=== PATIENT | male | born 1965 | race Caucasian/White ===

== ENCOUNTER 2019-07-04 22:11 | Emergency (ER) | payer MEDICARE, OTHER, SELFPAY ==
[2019-07-04 22:36] VITALS: BP 195/109; PULSE 89; RESP 16; TEMP 36.8; O2SAT 96; BMI 29.9
[2019-07-04] MEDS: ketorolac 60 mg/2 mL INJ IM (23:54)
[2019-07-04] MEDS: diazePAM 5 mg Tablet PO (23:54)
--- NOTE | 2019-07-05 00:18 | PC.NURSE ---
Patient resting in bed with spouse at bedside, denies any pain relief following medications. Denies any needs at this time
[2019-07-05 00:49] VITALS: RESP 16
[2019-07-05] MEDS: morphine 4 mg/mL SDV 1 mL IM (00:49)
[2019-07-05 01:04] VITALS: BP 166/112; PULSE 96; RESP 16; O2SAT 95
--- NOTE | 2019-07-05 01:17 | ED_ITS ---
HPI - Neck Pain/Injury General: Chief Complaint: Neck Pain/Injury Stated Complaint: neck pain Time Seen by Provider: 07/04/19 23:30 Source: patient and family Mode of arrival: ambulatory Limitations: no limitations History of Present Illness: HPI Narrative: Patient is a 53-year-old male who presents to ED today with complaints of a burning sensation starting on the right side of his neck and radiating down over his right shoulder but does not extend down into his right upper extremity/arm. Patient reports he has had intermittent tingling to the same area for several months now that was tolerable but states over the past few days symptoms have now progressed to burning and have kept him up several nights in a row due to the discomfort. He denies weakness in his upper extremities. No headache. Has not noticed any redness/swelling/color/temperature changes in the extremity. MD complaint: neck pain and other (R shoulder burning) Radiation: right shoulder Severity: moderate Quality: burning Duration: constant Relieving factors: none Exacerbating factors: none Associated symptoms: Reports no associated symptoms; Denies headache(s) Treatments prior to arrival: acetaminophen, ibuprofen and prescription analgesic (tramadol) Review of Systems Const: Denies: fever or chills Eyes: Denies: change in vision or blurry vision Card: Denies: chest pain, palpitations, irregular heart rhythm, edema, lightheadedness, syncope or pre-syncope Resp: Denies: shortness of breath, pain on inspiration or chest congestion Musc: Reports: neck pain and extremity pain; Denies: back pain, extremity swelling, joint swelling, redness, joint warmth, joint stiffness, limited range of motion, muscle cramps, muscle weakness or decrease in muscle mass Skin/Breast: Denies: rash Neuro: Reports: changes in sensation; Denies: headache, numbness in extremities or weakness in extremities PFSH ED PFSH: Statuses (acute, chronic, etc) shown below reflect problem list status as previously entered and may not be historically accurate Social History Smoking and tobacco status: former smoker Physical Exam Const: COMMON NORMALS: no apparent distress, average body habitus, oriented x3, no limitations, healthy appearing, alert and well nourished Neck/C-Spine: COMMON NORMALS: full ROM, no lymphadenopathy, supple and no meningeal signs OTHER: pt with pain to lower cervical spine with head rotation to the R; negative Spurling's Extremity: COMMON NORMALS: normal to inspection, full ROM and no joint enlargement OTHER: pt maintains full ROM of shoulder joint; exam not concerning for shoulder impingement or other acute pathology Neuro: COMMON NORMALS: oriented x3, moves all extremities, no focal motor deficits and no sensory deficits noted SENSORIUM/ORIENTATION: Yes alert MENINGEAL SIGNS: Yes no meningeal signs Skin: COMMON NORMALS: no rashes or lesions noted GENERAL SKIN EXAM: no rashes or lesions noted Course Vital Signs: Vital signs: Vital Signs Temperature 98.3 F 07/04/19 22:36 Pulse Rate 96 07/05/19 01:04 Respiratory Rate 16 07/05/19 01:04 Blood Pressure 166/112 07/05/19 01:04 Pulse Oximetry 95 07/05/19 01:04 MDM - Neck Pain/Injury MDM Narrative: Medical decision making narrative: Symptoms are consistent with a cervical radiculopathy. There is no need for emergent advanced imaging today as it is not going to overall change my management. states they are scheduled to have an appointment at [facility] in [place] for conservative therapy such as physical therapy and chiropractor care. I agree this is an appropriate option at this time. I did suggest if he does not seem to be improving with conservative management, he might seek neurosurgery evaluation. Discharge Plan Discharge Patient Disposition: Home, Self-Care Clinical Impression: Cervical radicular pain Condition: Stable Prescriptions: New Zanaflex 2 mg capsule 2 mg PO Q8H PRN (Reason: muscle spasticity) Qty: 14 RF: 0 hydrocodone-acetaminophen 5-325 mg tablet 1 tab PO Q6H PRN (Reason: pain) Qty: 14 RF: 0 Discharge Orders: Discharge Order (Routine); Ordered 07/05/19 Ordered By: Antonia Banda Referrals: [facility] MD [Primary Care Provider] - Discharge Diet: Usual diet Discharge Activity: Increase activity as tolerated Activity Restrictions/Additional Instructions: As discussed continue your evaluation with primary care as scheduled on Sunday and then keep appointment with [facility] in [place]. If conservative measures fail, then I would recommend obtaining neurosurgery consultation. Discharge Date/Time: 07/05/19 01:05 Coding Level of Care Code ED Leather Polisher for Eliseo Fwbaldomero Exam Problem Focused
== END 2019-07-05 01:05 | disposition home or self-care (01) ==
PROVIDERS: Emergency Provider Physician Assistant; Family Provider Family Medicine; PCP Family Medicine
DX: M54.12 Radiculopathy, cervical region (principal); Z87.891 Personal history of nicotine dependence
CPT/HCPCS: 96372; 99281; 99283; J1885; J2270

== ENCOUNTER 2019-07-08 09:44 | Outpatient (CLI) | payer MEDICARE, OTHER, SELFPAY | END 2019-07-08 09:45 | disposition home or self-care (01) | LOC: RADSHAW 10:59 | PROVIDERS: Family Provider Family Medicine; PCP Family Medicine; Visit Provider Nurse Practitioner | DX: M54.5 Low back pain (principal); M54.12 Radiculopathy, cervical region; Z79.891 Long term (current) use of opiate analgesic | CPT/HCPCS: 99214 ==

== ENCOUNTER 2019-07-16 08:57 | Outpatient (CLI) | payer MEDICARE, OTHER, SELFPAY ==
--- NOTE | 2019-07-16 09:30 | MR_ITS ---
WS: [id number] MRI CERVICAL SPINE NONCONTRAST TECHNIQUE: Sagittal T1, T2 and STIR imaging. Axial T2, gradient, and fiesta imaging. CLINICAL INFORMATION: rt. neck and clavicular region pain COMPARISON: MRI February 21, 2018 FINDINGS: Straightening of the normal cervical lordosis. Mild disc bulging C3-C4 and C4-C5 with slight contact of the cervical cord. Cord signal is normal. C2-C3: Normal C3-C4: Mild disc bulging with osteophytic ridging. Mild central canal stenosis. Moderate to severe le ft and moderate right bony foraminal narrowing. Mild facet arthropathy. C4-C5: Disc osteophyte complex with endplate ridging. Mild to moderate central canal stenosis and sli ght contact of the cervical cord. Severe left and mild to moderate right bony foraminal narrowing. Mi ld facet arthropathy. C5-C6: No significant disc bulging. Mild bilateral bony foraminal narrowing. Spinal canal is patent. Mild facet arthropathy. C6-C7: Normal. C7-T1: Mild facet arthropathy. No significant disc bulging. Spinal canal and foramen are patent. Visualized brain stem structures: Normal. Prevertebral soft tissues: Normal. MR/MR cervical spin wo con* [id number] IMPRESSION: 1. Straightening of the normal cervical lordosis. 2. Mild to moderate central canal stenosis C3-C4 and C4-C5 due to disc osteoph yte complexes with small central disc osteophyte protrusions. Slight contact of the cervical cord. Spinal canal stenosis is unchanged since February 21, 2018 . 3. Multilevel bony foraminal narrowing worse at bilateral C3-C4 left greater t vickers right, left C4-C5, and right C5-6
== END 2019-07-16 08:58 | disposition home or self-care (01) ==
PROVIDERS: Family Provider Family Medicine; PCP Family Medicine; Visit Provider Nurse Practitioner
DX: M48.02 Spinal stenosis, cervical region (principal); M25.78 Osteophyte, vertebrae; M47.812 Spondylosis without myelopathy or radiculopathy, cervical region
CPT/HCPCS: 72040; 72141

== ENCOUNTER 2019-07-16 10:32 | Outpatient (CLI) | payer MEDICARE, OTHER, SELFPAY ==
--- NOTE | 2019-07-16 10:39 | XR_ITS ---
WS: [id number] XR cervical spine fl/ex [id number] REASON FOR EXAM: pain rt neck and clavicle region FINDINGS: Lateral projection of the neck shows anterior spurring C3, C4, C5. There is mild posterior spurring noted C4-C5. And mildly C5-6. Flexion-extension views show normal flexion and extension. XR/XR cervical spine fl/ex [id number] IMPRESSION: Normal flexion and extension. Degenerated spurring off the anterior bodies of C3-C4-C5 There is mild cervical spondylosis C5 and C6, C4-C5.
== END 2019-07-16 10:33 | disposition home or self-care (01) ==
LOC: RAD 10:36
PROVIDERS: Family Provider Family Medicine; PCP Family Medicine; Visit Provider Nurse Practitioner
DX: M47.812 Spondylosis without myelopathy or radiculopathy, cervical region (principal)
CPT/HCPCS: 72040

== ENCOUNTER → 2019-08-05 12:49 | Outpatient (BNVA) | payer MEDICARE, OTHER, SELFPAY | PROVIDERS: Family Provider Family Medicine; PCP Nurse Practitioner Family; Visit Provider Nurse Practitioner | DX: M54.12 Radiculopathy, cervical region (principal); M48.061 Spinal stenosis, lumbar region without neurogenic claudication; Z79.891 Long term (current) use of opiate analgesic | CPT/HCPCS: 99213; 99214 ==

== ENCOUNTER → 2019-10-03 10:33 | Outpatient (BNVA) | payer MEDICARE, OTHER, SELFPAY | PROVIDERS: Family Provider Family Medicine; PCP Nurse Practitioner Family; Visit Provider Nurse Practitioner | DX: M48.061 Spinal stenosis, lumbar region without neurogenic claudication (principal); M54.9 Dorsalgia, unspecified; M54.12 Radiculopathy, cervical region; M47.12 Other spondylosis with myelopathy, cervical region; Z79.891 Long term (current) use of opiate analgesic | CPT/HCPCS: 99213; 99214 ==

== ENCOUNTER → 2019-12-12 09:52 | Outpatient (BNVA) | payer MEDICARE, OTHER, SELFPAY | PROVIDERS: Family Provider Family Medicine; PCP Nurse Practitioner Family; Visit Provider Anesthesiology | DX: M54.12 Radiculopathy, cervical region (principal); M47.12 Other spondylosis with myelopathy, cervical region; M54.42 Lumbago with sciatica, left side; M54.41 Lumbago with sciatica, right side; M48.061 Spinal stenosis, lumbar region without neurogenic claudication; M51.36 Other intervertebral disc degeneration, lumbar region; M47.816 Spondylosis without myelopathy or radiculopathy, lumbar region; M54.9 Dorsalgia, unspecified; M96.1 Postlaminectomy syndrome, not elsewhere classified; Z79.891 Long term (current) use of opiate analgesic | CPT/HCPCS: 99214 ==

== ENCOUNTER → 2020-02-26 09:04 | Outpatient (BNVA) | payer MEDICARE, OTHER, SELFPAY | PROVIDERS: Family Provider Family Medicine; PCP Nurse Practitioner Family; Visit Provider Anesthesiology | DX: M48.061 Spinal stenosis, lumbar region without neurogenic claudication (principal); M47.816 Spondylosis without myelopathy or radiculopathy, lumbar region; M51.36 Other intervertebral disc degeneration, lumbar region; M54.12 Radiculopathy, cervical region; M47.12 Other spondylosis with myelopathy, cervical region; M54.9 Dorsalgia, unspecified; M96.1 Postlaminectomy syndrome, not elsewhere classified; M99.31 Osseous stenosis of neural canal of cervical region; Z79.891 Long term (current) use of opiate analgesic | CPT/HCPCS: 99213; 99214 ==

== ENCOUNTER → 2020-05-07 08:56 | Outpatient (BNVA) | payer MEDICARE, OTHER, SELFPAY | PROVIDERS: Family Provider Family Medicine; PCP Nurse Practitioner Family; Visit Provider Nurse Practitioner | DX: M48.061 Spinal stenosis, lumbar region without neurogenic claudication (principal); M54.12 Radiculopathy, cervical region; M47.12 Other spondylosis with myelopathy, cervical region; Z79.891 Long term (current) use of opiate analgesic; M96.1 Postlaminectomy syndrome, not elsewhere classified; M47.816 Spondylosis without myelopathy or radiculopathy, lumbar region | CPT/HCPCS: 99213 ==

== ENCOUNTER 2020-06-07 12:40 | Emergency (ER) | payer MEDICARE, OTHER, SELFPAY ==
[2020-06-07 12:41] VITALS: BP 176/91; PULSE 86; RESP 13; TEMP 36.6; O2SAT 96; BMI 29.0
[2020-06-07 12:50] VITALS: BP 176/91; PULSE 91; RESP 13; O2SAT 96
--- NOTE | 2020-06-07 12:54 | PC.NURSE ---
Side rails padded for pt safety. Pt denies any drug or alcohol abuse.
[2020-06-07 13:00] VITALS: BP 169/90; PULSE 86; RESP 15; O2SAT 99
--- NOTE | 2020-06-07 13:03 | XRR_ITS ---
PROCEDURE INFORMATION: Exam: XR Chest, 1 View Exam date and time: 06/07/2020 1:15 PM Age: 54 years old Clinical indication: Cough and dyspnea; Patient HX: Seizure; Additional info: Dyspnea/cough TECHNIQUE: Imaging protocol: XR of the chest Views: 1 view. COMPARISON: No relevant prior studies available. FINDINGS: Lungs: Unremarkable. No consolidation. Pleural space: Unremarkable. No pleural effusion. No pneumothorax. Heart/Mediastinum: Unremarkable. No cardiomegaly. Bones/joints: No acute findings. XR/XR chest 1V portable [id number] IMPRESSION: No acute findings.
--- NOTE | 2020-06-07 13:04 | CT_ITS ---
WS: [id number] CT HEAD TECHNIQUE: Noncontrast CT of the head obtained from the skullbase to the vertex. CLINICAL INFORMATION: seizure COMPARISON: None. DLP: 871.[address] scans at [facility] use at least one of these dose optimization techniques: automat ed exposure control; mA and/or kV adjustment per patient size (includes targeted exams where dose is matched to clinical indication); or iterative reconstruction. FINDINGS: Heterogeneous ovoid lesion at the parietal verma-white junction measuring 1.5 x 2.2 cm with mild assoc iated edema. Findings are nonspecific and underlying mass lesion not excluded.Recommend further evalu ation with MRI without and with gadolinium enhancement. Otherwise normal verma-white differentiation. Mild small vessel changes. Mild parenchymal volume loss. Paranasal sinuses and mastoid air cells well aerated. Impression. CT/CT head wo con* [id number] IMPRESSION: 1. Ovoid slightly heterogeneous low-attenuation lesion in the right parietal l obe at the verma-white junction with mild edema. This is nonspecific and Recomme nd further evaluation with MRI without and with gadolinium enhancement. 2. No significant mass effect or midline shift. No hydrocephalus. 3. No acute intracranial hemorrhage. 4. Mild small vessel changes with mild parenchymal volume loss. Notified Ezequiel Adams DO at 06/07/2020 1:56 PM.
--- NOTE | 2020-06-07 13:08 | W.ED.SEIZURE ---
HPI - Seizure General: Chief Complaint: Seizure Stated Complaint: CONFUSION, SEIZURE LIKE ACTIVITY, HEADACHE Time Seen by Provider: 06/07/20 12:45 History of Present Illness: HPI Narrative: 54-year-old male presents to the emergency room with complaint of a seizure. He was acting unusual today had some vision changes and had a tonic-clonic seizure. He said 2 week ago (his later corrected this and it was actually 2 months ago) he was at [facility] had some migraines had a CT of the head was negative was sent to the eye doctor who evaluated him there for his vision and then they sent him back to the emergency room where he had an MRI that was reportedly normal he still having some blurry vision now he is significantly confused his is at the bedside he cannot remember any of the events that happened prior to coming here. He denies chest pain or abdominal pain. He does appear postictal on arrival here. The episode a couple months ago began with a headache and then he had some eye twitching that lasted for some time before he was seen. MD complaint: possible seizure Onset (ago): hour(s) Description of Episode: loss of consciousness and tonic-clonic movement Witnessed: Yes - by Bystander Trauma: No Seizure History: Yes (Possibly) Place: Home Associated symptoms: Deny chest pain, chills, confusion, cough, diaphoresis, fever(s), anorexia, malaise, rash or short of breath Treatments prior to arrival: none Review of Systems Const: Denies: fever(s), chills, malaise or diaphoresis ENMT: Denies: throat pain, ear or mastoid pain, nasal discharge or nasal congestion Card: Denies: chest pain Resp: Denies: dyspnea, productive cough or non-productive cough GI: Denies: abdominal pain, nausea, vomiting, hematemesis, coffee ground emesis, diarrhea, constipation, bloating, hematochezia or melena : Denies: flank pain, dysuria, urinary frequency or urinary urgency Skin/Breast: Denies: rash or pruritus Neuro: Denies: confusion PFSH ED PFSH: Medical History (Updated 06/07/20 @ 16:24 by Ezequiel Adams DO) DDD (degenerative disc disease), lumbar Depression Diabetes Failed back syndrome, lumbar Foraminal stenosis of lumbar region Long-term current use of opiate analgesic Pain management contract signed Spondylosis without myelopathy or radiculopathy, lumbar region Surgical History History of lumbar surgery 2012 Dr. Marinelli - Fusion Hx of tonsillectomy (~09/30/14) DR MYERS [place] Family History Mother Diabetes Lupus (systemic lupus erythematosus) Father Diabetes Denies family history of Anesthesia complication Bleeding disorder Social History Smoking and tobacco status: former smoker Alcohol intake: current Alcohol intake frequency: holidays/special occasions only Lives independently: Yes History of recent travel: No Physical Exam Const: COMMON NORMALS: no acute distress GENERAL APPEARANCE: cooperative and comfortable ORIENTATION/CONSCIOUSNESS: Yes awake, Yes oriented to person, Yes oriented to place and Yes oriented to time HENMT: COMMON NORMALS: normocephalic, atraumatic and hearing grossly normal bilaterally HEAD & SCALP: normocephalic and atraumatic Eye: COMMON NORMALS: Equal, round and reactive pupils present, EOMs intact bilaterally, conjunctivae normal and no scleral icterus CONJUNCTIVA: Yes conjunctivae normal PUPIL: Yes Equal, round and reactive pupils present Neck/C-Spine: COMMON NORMALS: full ROM, no lymphadenopathy, supple and no JVD Resp: COMMON NORMALS: normal respiratory effort, No retractions, No use of accessory muscles and clear to auscultation bilaterally AUSCULTATION: clear to auscultation bilaterally Cardio: COMMON NORMALS: no JVD, regular rate, regular rhythm and No murmurs present (Cardio) RATE: regular rate RHYTHM: regular rhythm GI: COMMON NORMALS: Soft to palpation and No hepatosplenomegaly present AUSCULTATION: Yes normoactive bowel sounds PALPATION: Yes Soft to palpation, No Tenderness to palpation present (GI), No Guarding due to palpation present (GI) and Yes No hepatosplenomegaly present Extremity: COMMON NORMALS: normal to inspection, capillary refill normal, no clubbing, cyanosis or edema, no calf tenderness and no pedal edema Neuro: SENSORIUM/ORIENTATION: Yes oriented to person, Yes oriented to place and Yes oriented to time Skin: COMMON NORMALS: no rashes or lesions noted GENERAL SKIN EXAM: no rashes or lesions noted Course Vital Signs: Vital signs: Vital Signs Temperature 97.8 F 06/07/20 12:41 Pulse Rate 86 06/07/20 12:41 Respiratory Rate 13 06/07/20 12:41 Blood Pressure 176/91 06/07/20 12:41 Pulse Oximetry 96 06/07/20 12:41 MDM - Seizure MDM Narrative: Medical decision making narrative: Written reports from the imaging done at [facility] 2 months ago was received and compared to today's. There is a new lesion of the right parietal l area posteriorly Dr. Tapia recommended a MRI. MRI it appears to be an old bleed there is some hemosiderin in. He does recommend repeat imaging at some point in the future like in [address] Dang as well. I think he may have had a partial complex seizure 2 months ago and now is developing more significant seizures today it sounded like he had a tonic-clonic seizure that is much more generalized. We will go ahead and start him on Keppra we loaded him here we will discharge him on 1050 twice daily he will likely need to reconsider whether or not he continues on the Eliquis. In talking to him this Eliquis was started after a DVT that began after a long flight. He has been on anticoagulation since then. Recommend that he follow-up with his primary care doctor soon as possible to review whether or not he should continue on that. We will also set him up to see Dr. Dang for follow-up whether or not he should continue on the Keppra and further imaging on this. Lab Data: Labs: Lab Results 06/07/20 06/07/20 06/07/20 Range/Units 12:15 12:15 13:25 WBC 9.0 (4.0-10.0) 10^3/ uL RBC 6.08 H (4.1-5.3) 10^6/u L Hgb 17.7 H (11.7-16.6) g/dL Hct 55.3 H (42.0-52.0) % MCV 91.0 (80-94) fL MCH 29.1 (28.0-34.0) pg MCHC 32.0 (30.0-36.0) g/dL RDW 12.3 (12.1-15.1) % Plt Count 227 (130-400) 10^3/c mm MPV 10.7 H (7.4-10.4) fL Neut % (Auto) 47.8 % Lymph % (Auto) 39.4 % [place] % (Auto) 8.1 % Eos % (Auto) 2.2 % Baso % (Auto) 0.7 % Neut # (Auto) 4.32 (1.8-7.7) 10^3/u L Lymph # (Auto) 3.6 (0.8-4.8) 10^3/u L [place] # (Auto) 0.7 (0.2-0.9) 10^3/u L Eos # (Auto) 0.2 (0.0-0.8) 10^3/u L Baso # (Auto) 0.1 (0.0-0.1) 10^3/u L Nucleated RBC % (a uto) 0 % Nucleated RBCs # 0.0 /100WBC Sodium 132 L (136-145) mmol/L Potassium 4.8 (3.5-5.1) mmol/L Chloride 91 L (98-107) mmol/L Carbon Dioxide 18 L (22-29) mmol/L Anion Gap 27.8 H (5-19) BUN 15 (6-20) mg/dL Creatinine 1.1 (0.7-1.2) mg/dL GFR Calculation 69.2 L (90-130) mL/min Glucose 332 H (65-115) mg/dL Calculated Osmolal ity 288 (285-295) mOsm/k g Calcium 9.8 (8.5-10.5) mg/dL Total Bilirubin 0.3 (0.15-1.2) mg/dL AST 35 (0-40) U/L ALT 37 (0-41) U/L Alkaline Phosphata se 69 (40-130) IU/L Creatine Kinase 109 (39-308) U/L Total Protein 7.6 (6.6-8.7) g/dL Albumin 4.7 (3.5-5.2) g/dL Globulin 2.9 (1.3-4.6) g/dL Urine Color Yellow (Yellow) Urine Appearance Clear (CLEAR) Urine pH 5 (5-7) Ur Specific Gravit y 1.020 (1.005-1.030) Urine Protein 1+ H (Negative) Urine Glucose (UA) 4+ H (Normal) Urine Ketones 1+ H (Negative) Urine Blood Neg (Negative) Urine Nitrate Negative (Negative) Urine Bilirubin Neg (Negative) Urine Urobilinogen Norm (Negative) mg/dL Ur Leukocyte Lisa ase Negative (Negative) Urine RBC 0-4 H (0-2) /hpf Urine WBC 0-4 H (0-5) /hpf Ur Squamous Epith Cells 0-4 H (0-5) /hpf Amorphous Sediment Not Reportable Urine Bacteria Trace (NONE) /hpf Discharge Plan Discharge Patient Disposition: Home Clinical Impression: Long-term current use of opiate analgesic, Generalized seizure, Diabetes, Hx of deep venous thrombosis Condition: Stable Prescriptions: New Keppra 750 mg tablet 750 mg PO BID Qty: 60 RF: 0 No Action zolpidem [Ambien] 10 mg tablet 10 mg PO BEDTIME@0900 RF: 0 metformin 500 mg tablet 1,000 mg PO BID@0900,2100 RF: 0 famotidine [Pepcid] 20 mg tablet 20 mg PO DAILY PRN (Reason: stomach issues) RF: 0 bupropion HCl 300 mg tablet extended release 24 hr 300 mg PO DAILY@0900 RF: 0 lisinopril 10 mg tablet 10 mg PO BID@0900,2100 RF: 0 Eliquis 5 mg tablet 5 mg PO DAILY@2100 RF: 0 Levemir FlexTouch U-100 Insuln 100 unit/mL (3 mL) insulin pen 12 unit SUBCUT DAILY@1200 PRN (Reason: blood sugar) RF: 0 atorvastatin 80 mg tablet 80 mg PO DAILY@0900 RF: 0 Vitamin E See Rx Instructions .ROUTE .COMPLEX RF: 0 cyclobenzaprine 10 mg tablet 10 mg PO TID PRN (Reason: muscle spasm) Qty: 90 RF: 1 hydrocodone-acetaminophen 5-325 mg tablet 1 tab PO BID PRN (Reason: pain) 30 Days Qty: 60 RF: 0 Discharge Orders: Discharge ED (Routine); Ordered 06/07/20 Ordered By: Ezequiel Adams Referrals: Dipika Karimi, PUBLIC HEALTH ENGINEER [Primary Care Provider] - Discharge Diet: Usual diet Discharge Activity: Limit activity as instructed Activity Restrictions/Additional Instructions: Avoid driving a motor vehicle until cleared by neurology. Case management will set you up to see neurology. You will need follow-up imaging for the findings today in the ER. Follow-up with your primary care doctor within the next week to review whether or not you should continue the Eliquis. Coding Level of Care Code ED Optoelectronics Engineer for Eliseo Fwd Exam Comprehensive
[2020-06-07 13:21] LABS: Basophils # 0.1 10^3/uL (0.0-0.1); Basophils % 0.7 %; Eosinophils # 0.2 10^3/uL (0.0-0.8); Eosinophils % 2.2 %; Hematocrit 55.3 % (42.0-52.0); Hemoglobin 17.7 g/dL (11.7-16.6); Lymphocytes # 3.6 10^3/uL (0.8-4.8); Lymphocytes % 39.4 %; Mean Corpuscular Hemoglobin 29.1 pg (28.0-34.0); Mean Platelet Volume 10.7 fL (7.4-10.4); Monocytes # 0.7 10^3/uL (0.2-0.9); Monocytes % 8.1 %; Neutrophils # 4.32 10^3/uL (1.8-7.7); Neutrophils % 47.8 %; Nucleated Red Blood Cells % 0 %; Platelet Count 227 10^3/cmm (130-400); Red Blood Count 6.08 10^6/uL (4.1-5.3); Red Cell Distribution Width 12.3 % (12.1-15.1)
[2020-06-07 13:30] VITALS: BP 156/95; PULSE 85; RESP 17; O2SAT 97
[2020-06-07 13:31] LABS: Alanine Aminotransferase 37 U/L (0-41); Albumin Level 4.7 g/dL (3.5-5.2); Alkaline Phosphatase 69 IU/L (40-130); Blood Urea Nitrogen 15 mg/dL (6-20); Calcium 9.8 mg/dL (8.5-10.5); Carbon Dioxide 18 mmol/L (22-29); Chloride 91 mmol/L (98-107); Creatine Phosphokinase 109 U/L (39-308); Globulin 2.9 g/dL (1.3-4.6); Glomerular Filtration Rate 69.2 mL/min (90-130); Glucose 332 mg/dL (65-115); Osmolality Calculated 288 mOsm/kg (285-295); Sodium 132 mmol/L (136-145); Total Bilirubin 0.3 mg/dL (0.15-1.2); Total Protein 7.6 g/dL (6.6-8.7)
[2020-06-07 13:34] LABS: Anion Gap 27.8 (5-19); Aspartate Amino Transferase 35 U/L (0-40); Potassium 4.8 mmol/L (3.5-5.1)
[2020-06-07 13:40] LABS: Urine Appearance Clear (CLEAR); Urine Color Yellow (Yellow); pH Urine 5 (5-7)
[2020-06-07 13:41] LABS: Add Urine Microscopic? YES; Bilirubin Urine Neg (Negative); Blood Urine Neg (Negative); Glucose Urine UA 4+ (Normal); Ketones Urine 1+ (Negative); Leukocyte Esterase Urine Negative (Negative); Nitrate Urine Negative (Negative); Protein Urine 1+ (Negative); Urobilinogen Urine Norm (Negative)
[2020-06-07 13:59] LABS: RBC Urine 0-4 /hpf (0-2); Squamous Epithelial Cell Urine 0-4 /hpf (0-5); WBC Urine 0-4 /hpf (0-5)
[2020-06-07 14:00] LABS: Add Urine Culture? No; Bacteria Urine TRACE /hpf
--- NOTE | 2020-06-07 14:06 | MR_ITS ---
WS: [id number] MRI HEAD WITH CONTRAST TECHNIQUE: Sagittal T1, T2 axial, T2 axial FLAIR, axial susceptibility weighted imaging, axial diffus ion weighted images, and coronal T2 images were obtained. Pre and post-T1 axial and post T1 coronal i mages. ADC and FSPGR images. CLINICAL INFORMATION: new mass - r parietal lobe COMPARISON: Outside CT and MRI reports 03/12/2020 and 03/13/2020 FINDINGS: In the area of concern, right parietal lobe, there is a T2 hyperintense serpiginous enhancing lesion with associated central punctate hemosiderin on susceptibly weighted images. This lesion measures deidra roximately 1.8 x 1.8 cm. This is subcortical and centered at the verma-white junction. Small amount of associated T1 hyperintensity seen on the sagittal T1 imaging consistent with a small amount of subac david blood products or laminar necrosis. No restricted diffusion to suggest acute ischemia. Ventricular system and basal cisterns are patent. Mild small vessel changes. Mild parenchymal volume loss. Normal posterior fossa. Normal vascular raul w voids at the skull base. No extra-axial fluid collections. Paranasal sinuses are well aerated. Mast oid air cells well aerated. Normal optic chiasm and pituitary infundibulum. Normal dural venous sinus es. MR/MR head wo/w con [id number] IMPRESSION: 1. Heterogeneous T2 hyperintense right parietal lesion with peripheral serpigi nous enhancement. Associated central hemosiderin. Differential considerations i nclude late subacute intraparenchymal hemorrhage, hemorrhagic intraparenchymal lesion, or less likely subcortical hemorrhagic infarct. Recommend short interva l follow-up to exclude underlying lesion in 4-6 weeks. 2. No significant mass effect or midline shift. 3. No hydrocephalus. 4. Mild small vessel changes with mild parenchymal volume loss. 5. No other abnormal foci of enhancement. Notified Ezequiel Adams DO at 06/07/2020 4:09 PM.
--- NOTE | 2020-06-07 14:30 | PC.NURSE ---
Pt to MRI at this time via EMS
--- NOTE | 2020-06-07 15:51 | PC.NURSE ---
Pt returned to ER-12 from MRI at this time.
[2020-06-07 16:38] VITALS: BP 131/78; PULSE 77; RESP 18; O2SAT 97
--- NOTE | 2020-06-09 11:07 | DCPLANNER ---
global sales manager had message to schedule a follow up appointment for patient with Dr. Dang. global sales manager called the office of Dr. Dang, spoke with Cynthia, distance learning coordinator, a follow up appointment was scheduled for May at 2:00. global sales manager called patient, spoke with patients , informed her of the scheduled appointment. Patients stated that patient would be at the appointment.
--- NOTE | 2020-06-29 08:54 | DCPLANNER ---
Patient had a follow up appointment scheduled for 06.10.[address] Dang - patient did attend appointment.
== END 2020-06-07 16:37 | disposition home or self-care (01) ==
PROVIDERS: Emergency Provider Family Medicine; PCP Nurse Practitioner Family
DX: G40.802 Other epilepsy, not intractable, without status epilepticus (principal); E11.9 Type 2 diabetes mellitus without complications; Z79.891 Long term (current) use of opiate analgesic; Z86.718 Personal history of other venous thrombosis and embolism; Z79.01 Long term (current) use of anticoagulants; Z79.4 Long term (current) use of insulin; Z87.891 Personal history of nicotine dependence
CPT/HCPCS: 12345; 70450; 70553; 71045; 80053; 81001; 82550; 85025; 96374; 99283; A9579; J1953

== ENCOUNTER → 2020-06-10 13:48 | Outpatient (BNVA) | payer MEDICARE, OTHER, SELFPAY | PROVIDERS: PCP Nurse Practitioner Family; Referring Provider Family Medicine; Visit Provider Specialist | DX: R56.9 Unspecified convulsions (principal); I62.9 Nontraumatic intracranial hemorrhage, unspecified; F32.9 Major depressive disorder, single episode, unspecified; F06.0 Psychotic disorder with hallucinations due to known physiological condition; I10 Essential (primary) hypertension; E11.9 Type 2 diabetes mellitus without complications; Z79.4 Long term (current) use of insulin; Z87.891 Personal history of nicotine dependence | CPT/HCPCS: 99205 ==

== ENCOUNTER → 2020-06-15 14:50 | Outpatient (BNVA) | payer MEDICARE, OTHER, SELFPAY | PROVIDERS: PCP Nurse Practitioner Family; Visit Provider Specialist | DX: G40.909 Epilepsy, unspecified, not intractable, without status epilepticus (principal); Z87.891 Personal history of nicotine dependence | CPT/HCPCS: 95816 ==

== ENCOUNTER 2020-07-02 11:08 | Outpatient (CLI) | payer MEDICARE, OTHER, SELFPAY ==
--- NOTE | 2020-07-02 11:17 | USCV_ITS ---
Hawk Ramos Age: 54 Gender: M : 1965 Exam Date: 07/02/2020 11:37 Ordering Phys: Dipika Karimi NP Technologist: Stacie Ramos Exam Location: [facility] [place]_ Indication: F/U DVT HISTORY: Follow up DVT PROCEDURES: Venous duplex imaging was performed in only the left lower extremity. The following venous structures were evaluated: common femoral vein, profunda vein, proximal portion of the greater saphenous vein, superficial femoral vein, and the popliteal vein. In addition, the posterior tibial and peroneal trunk were evaluated. Serial compression, augmentation maneuvers, and spectral Doppler flow evaluation were performed. FINDINGS: Age indeterminate left popliteal vein and peroneal trunk DVT unchanged since 2018. No acute or additional DVT. CONCLUSIONS Age indeterminate but unchanged DVT left popliteal vein and peroneal trunk since 2018. Dr. Meka Ibarra DO (Electronically Signed) Final Date: 02 July 2020 11:56 S
== END 2020-07-02 11:09 | disposition home or self-care (01) ==
LOC: RAD 11:10
PROVIDERS: PCP Nurse Practitioner Family; Visit Provider Nurse Practitioner Family
DX: I82.532 Chronic embolism and thrombosis of left popliteal vein (principal)
CPT/HCPCS: 93971

== ENCOUNTER 2020-07-05 12:48 | Outpatient (CLI) | payer MEDICARE, OTHER, SELFPAY ==
--- NOTE | 2020-07-05 13:00 | MR_ITS ---
WS: [id number] MRA HEAD TECHNIQUE: Axial 3-D TOF images obtained with axial images and axial, sagittal, and coronal 2-D refor matted images. CLINICAL INFORMATION: I63.9 - Cerebral infarction, unspecified COMPARISON: MRI June 07, 2020 FINDINGS: Correlation prior MRI June 07, 2020. Distal vertebral arteries are patent. Basilar artery is paten t. Normal vascularity to the SOFTWARE DESIGN MANAGER territory bilaterally. Both ICAs are patent at the skull base. Tiffanie l vascularity to the SUKHDEV and MCA territories bilaterally. No evidence of high-grade proximal stenosis or aneurysm. No evidence of high flow vascular malformation. T1 hyperintensity in the right parietal lobe appears slightly improved compared to the prior MRI. T1 hyperintensity in the left parietal lobe consistent with laminar necrosis. Tiny amount of hemosiderin . This is better seen today but similar in appearance to the prior MRI. MR/MR angio head wo con [id number] IMPRESSION: 1. No evidence of flow-limiting stenosis or high flow vascular malformation. 2. T1 hyperintensity in the right parietal lobe appears slightly improved comp ared to the prior MRI. 3. T1 hyperintensity in the left parasagittal parietal lobe appears unchanged consistent with a small amount of laminar necrosis likely due to late subacute to chronic ischemia.
== END 2020-07-05 12:49 | disposition home or self-care (01) ==
LOC: RADSHAW 12:48
PROVIDERS: PCP Nurse Practitioner Family; Visit Provider Specialist
DX: I63.9 Cerebral infarction, unspecified (principal)
CPT/HCPCS: 70544

== ENCOUNTER → 2020-07-21 13:00 | Outpatient (BNVA) | payer MEDICARE, OTHER, SELFPAY | PROVIDERS: PCP Nurse Practitioner Family; Visit Provider Specialist | DX: G40.219 Localization-related (focal) (partial) symptomatic epilepsy and epileptic syndromes with complex partial seizures, intractable, without status epilepticus (principal); G40.909 Epilepsy, unspecified, not intractable, without status epilepticus; I62.9 Nontraumatic intracranial hemorrhage, unspecified; F06.0 Psychotic disorder with hallucinations due to known physiological condition; R00.2 Palpitations; Z86.73 Personal history of transient ischemic attack (TIA), and cerebral infarction without residual deficits; Z87.891 Personal history of nicotine dependence | CPT/HCPCS: 99215 ==

== ENCOUNTER → 2020-07-23 08:14 | Outpatient (BNVA) | payer MEDICARE, OTHER, SELFPAY | PROVIDERS: PCP Nurse Practitioner Family; Visit Provider Nurse Practitioner | DX: M47.816 Spondylosis without myelopathy or radiculopathy, lumbar region (principal); M51.36 Other intervertebral disc degeneration, lumbar region; M48.061 Spinal stenosis, lumbar region without neurogenic claudication; M54.9 Dorsalgia, unspecified; M54.12 Radiculopathy, cervical region; M47.12 Other spondylosis with myelopathy, cervical region; M96.1 Postlaminectomy syndrome, not elsewhere classified; Z79.891 Long term (current) use of opiate analgesic | CPT/HCPCS: 99213 ==

== ENCOUNTER 2020-08-09 15:17 | Outpatient (CLI) | payer MEDICARE, OTHER, SELFPAY ==
--- NOTE | 2020-08-09 15:45 | USCV_ITS ---
Hawk Ramos Age: 54 Gender: M : 1965 Exam Date: 08/09/2020 15:32 Ordering Phys: Yue Dang MD Technologist: Violeta Merino Exam Location[place] [facility] [place] Indication: CEREBRAL INFARCTION BP: 165 / 85 HR: 86 Rhythm: Sinus Technical Quality: Adequate MEASUREMENTS (Male / Female) Normal Values 2D ECHO LV Diastolic Diameter PLAX 3.9 cm 4.2 - 5.9 / 3.9 - 5.3 cm LV Systolic Diameter PLAX 2.6 cm IVS Diastolic Thickness 1.5 cm 0.6 - 1.0 / 0.6 - 0.9 cm IVS Systolic Thickness 1.8 cm LVPW Diastolic Thickness 1.3 cm 0.6 - 1.0 / 0.6 - 0.9 cm LVPW Systolic Thickness 1.5 cm RV Chamber Size 2.5 cm LVOT Diameter 2.0 cm LV Ejection Fraction 2D Teich 60.8 % LV Ejection Fraction MOD 2C 61.6 % LV Ejection Fraction 2C AL 62.5 % LA Diameter 2.9 cm LA Width 3.2 cm LA Height 4.1 cm RA Width 3.0 cm RA Height 4.4 cm Aorta at Sinotubular Diameter 2.6 cm M-MODE LV Diastolic Diameter MM 3.6 cm 4.2 - 5.9 / 3.9 - 5.3 cm LV Systolic Diameter MM 2.5 cm LV Ejection Fraction MM Teich 58.2 % IVS Diastolic Thickness MM 1.4 cm 0.6 - 1.0 / 0.6 - 0.9 cm IVS Systolic Thickness MM 1.8 cm LVPW Diastolic Thickness MM 1.4 cm 0.6 - 1.0 / 0.6 - 0.9 cm LVPW Systolic Thickness MM 1.8 cm Aortic Annulus Diameter 2.9 cm LA Ao Ratio MM 1.1 MV E Point Septal Separation 0.4 cm DOPPLER AV Peak Velocity 131.0 cm/s LVOT Peak Velocity 103.0 cm/s AV Area Cont Eq vti 2.6 cm squared AV Area Cont Eq pk 2.5 cm squared MV Area PHT 4.2 cm squared Mitral E to A Ratio 1.5 MV E' Velocity 57.0 cm/s Mitral E to MV E' Ratio 8.0 Mitral E to LV E' Lateral Ratio 7.8 Mitral E to LV E' Septal Ratio 8.2 TR Peak Velocity 290.0 cm/s TR Peak Gradient 33.6 mmHg Right Atrial Pressure 3.0 mmHg Pulmonary Artery Systolic Pressu 36.6 mmHg PV Peak Velocity 112.0 cm/s RV Acceleration Time 0.1 s RV Ejection Time 0.3 s RV AcT/ET 0.4 FINDINGS Left Ventricle Normal left ventricular size, systolic function and wall thickness, with no regional wall motion abnormalities. Left ventricular ejection fraction is estimated at 65 %. Normal diastolic function. Right Ventricle Normal right ventricular size and systolic function. Right Atrium Normal right atrial size. Right atrial pressure estimated at 3 mmHg. Left Atrium Normal left atrial size. Mitral Valve Structurally normal mitral valve. No mitral valve stenosis. Trace mitral valve regurgitation. Aortic Valve Structurally normal trileaflet aortic valve. No aortic valve stenosis. No aortic valve regurgitation. Tricuspid Valve Structurally normal tricuspid valve. Trace tricuspid valve regurgitation. Pulmonic Valve Structurally normal pulmonic valve. No pulmonary valve stenosis. No pulmonary valve regurgitation. Pericardium No pericardial effusion. Aorta Normal size aortic root. Normal-sized inferior vena cava. CONCLUSIONS 1. Normal left ventricular size, systolic function and wall thickness, with no regional wall motion abnormalities. Left ventricular ejection fraction is estimated at 65 %. Normal diastolic function. 2. Normal right ventricular size and systolic function. 3. Right atrial pressure estimated at 3 mmHg. 4. No significant valvular abnormality. 5. No prior similar studies to compare. Klarissa Perez MD (Electronically Signed) Final Date: 11 August 2020 18:58 S
[2020-08-12 02:57] LABS: LA-Interp Not Indicated; PTT-LA 32 sec (<=40); Prothrombin Time 38 sec (<=45)
[2020-08-12 04:32] LABS: Antithrombin III Activity 102 % normal (80-135); PROTEIN C, ACTIVITY 131 % (70-180)
[2020-08-12 05:02] LABS: Beta 2 Glycoprotein IGA <9 SAU (<=20); Beta 2 Glycoprotein IGG <9 SGU (<=20); Beta 2 Glycoprotein IGM <9 SMU (<=20)
[2020-08-12 05:38] LABS: PROTEIN S, ACTIVITY 94 % normal (70-150)
[2020-08-12 18:38] LABS: CARDIOLIPIN AB (IGA) <11 APL; CARDIOLIPIN AB (IGG) <14 GPL; CARDIOLIPIN AB (IGM) <12 MPL
== END 2020-08-09 15:18 | disposition home or self-care (01) ==
PROVIDERS: Internal Medicine Cardiovascular Disease; PCP Nurse Practitioner Family; Visit Provider Specialist
DX: I63.89 Other cerebral infarction (principal); R00.2 Palpitations; D68.59 Other primary thrombophilia; Z86.718 Personal history of other venous thrombosis and embolism
CPT/HCPCS: 36415; 81241; 85300; 85303; 85306; 85613; 85730; 86146; 86147; 93306

== ENCOUNTER → 2020-09-13 11:56 | Outpatient (BNVA) | payer MEDICARE, OTHER, SELFPAY | PROVIDERS: PCP Nurse Practitioner Family; Visit Provider Internal Medicine Cardiovascular Disease | DX: Z01.812 Encounter for preprocedural laboratory examination (principal); Z20.822 Contact with and (suspected) exposure to COVID-19 | CPT/HCPCS: 87635 ==

== ENCOUNTER → 2020-09-14 08:50 | Outpatient (BNVA) | payer MEDICARE, OTHER, SELFPAY | PROVIDERS: PCP Nurse Practitioner Family; Visit Provider Anesthesiology | DX: G89.29 Other chronic pain (principal); M54.12 Radiculopathy, cervical region; M47.12 Other spondylosis with myelopathy, cervical region; M47.816 Spondylosis without myelopathy or radiculopathy, lumbar region; M51.36 Other intervertebral disc degeneration, lumbar region; M48.061 Spinal stenosis, lumbar region without neurogenic claudication; M99.31 Osseous stenosis of neural canal of cervical region; M96.1 Postlaminectomy syndrome, not elsewhere classified; M54.9 Dorsalgia, unspecified; Z79.891 Long term (current) use of opiate analgesic | CPT/HCPCS: 99214 ==

== ENCOUNTER 2020-09-17 05:55 | Day surgery (SDC) | payer MEDICARE, OTHER, SELFPAY ==
--- NOTE | 2020-09-17 06:13 | USCV_ITS ---
Richard Hawk Age: 54 Gender: M : 1965 Exam Date: 09/17/2020 07:04 Ordering Phys: Klarissa Perez MD ([email or web address]) Technologist: Milena Aguilar Exam Location: [facility] [place] Indication: Cerebrovascular accident BP: / HR: Rhythm: Sinus Technical Quality: Fair MEASUREMENTS (Male / Female) Normal Values Medications Patient given IV sedation by anesthesia service, for details please refer to the anesthesia report. Complications None. Proc. Components MIGUEL A was performed at multiple levels. FINDINGS Left Ventricle Normal left ventricular size, systolic function and wall thickness, with no regional wall motion abnormalities. Left ventricular ejection fraction is estimated at 65%. Right Ventricle Normal right ventricular size and systolic function. Right Atrium Normal right atrial size. Left Atrium Normal left atrial size. LA Appendage Normal left atrial appendage. Normal flow velocities in the left atrial appendage. No thrombus visualized in the left atrial appendage. IA Septum Normal interatrial septum. No patent foramen ovale. No evidence for an atrial septal defect. Mitral Valve Structurally normal mitral valve. No mitral valve stenosis. Trace mitral valve regurgitation. Aortic Valve Structurally normal trileaflet aortic valve. No aortic valve stenosis. No aortic valve regurgitation. Tricuspid Valve Structurally normal tricuspid valve. No tricuspid valve stenosis. Trace tricuspid valve regurgitation. Pulmonic Valve Structurally normal pulmonic valve. No pulmonary valve stenosis. Trace pulmonary valve regurgitation. Pericardium No pericardial effusion. Aorta Normal size aortic root and proximal ascending aorta. CONCLUSIONS 1. Normal left ventricular size, systolic function and wall thickness, with no regional wall motion abnormalities. Left ventricular ejection fraction is estimated at 65%. 2. Normal right ventricular size and systolic function. 3. No left atrial or left atrial appendage thrombus visualized. 4. Normal interatrial septum with no evidence of ASD or PFO by color Doppler or agitated saline study. 5. No cardioembolic source of stroke based on the study. Klarissa Perez MD (Electronically Signed) Final Date: 22 September 2020 13:10 S
[2020-09-17 06:22] VITALS: BP 135/80; PULSE 76; RESP 18; TEMP 36.7; O2SAT 96; BMI 27.7
--- NOTE | 2020-09-17 06:59 | P.ANESASSM_ITS ---
Pre-Anesthetic Assessment Pre-Anesthetic Assessment: Height/Weight: Height 1.68 m Weight 78.018 kg Temp Pulse Resp BP Pulse Ox 98.0 F 76 18 135/80 96 09/17/20 06:22 09/17/20 06:22 09/17/20 06:22 09/17/20 06:22 09/17/20 06:22 Preop Diagnosis: CVA Proposed Procedure: Operation Date: 09/17/20 07:00 Proposed Procedures p MIGUEL A (Transesophageal Echocardiogram) 35012 I63.89(Not Applicable) - Klarissa Perez MD Familial anesthetic complications: none Was Beta Dimitrios taken within 24 hours: N/A Was Clonidine taken within 24 hours: N/A Last Intake: 21:00 Social: Social History: No alcohol and No tobacco Exam: Pre-Anes Outpt Exam: alert, oriented x 3, clear to auscultation bilaterally and regular rate & rhythm Airway: Submandibular: WNL Cervical ROM: WNL MP: 1 Dentition: Full Pulmonary: Pulmonary: None reported CV/HEM: CV/HEM: DVT (RLE 2018 still present) and HTN : : None reported Hepatic: Hepatic: None reported GI: GI: GERD (occasional food related) Metabolic: Metabolic: DM (avg 200-300) Musc/skel: Musc/skel: Lower Back Pain and OA/DJD Neuropsych: Neuropsych: CVA (confusion and visual disturbance) and Seizure Anesthetic Plan: ASA status: 3 Anesthesia: MAC Risk of > 500 ml blood loss (7ml/kg in children): No PFSH Anesthesia PFSH: Medical History DDD (degenerative disc disease), lumbar Depression Diabetes Dyslipidemia Failed back syndrome, lumbar Foraminal stenosis of lumbar region HTN (hypertension) Long-term current use of opiate analgesic Pain management contract signed Spondylosis without myelopathy or radiculopathy, lumbar region Surgical History History of lumbar surgery 2012 Dr. Marinelli - Fusion Hx of tonsillectomy (~09/30/14) DR MYERS IN [place] Family History Mother Diabetes Lupus (systemic lupus erythematosus) Hypertension Father Diabetes Denies family history of Anesthesia complication Bleeding disorder Social History (Updated 09/14/20 @ 09:05 by Mi Avalos LPN) Smoking and tobacco status: former smoker Second hand smoke exposure: No Alcohol intake: current Alcohol intake frequency: holidays/special occasions only Lives independently: Yes History of recent travel: No Data Anesthesia Cardiac Studies: Cardiac Event Monitor 08/05/20
--- NOTE | 2020-09-17 07:23 | W.PM.OPSFHP ---
Same Day Surgery H&P Indication for Procedure/HPI DATE OF PROCEDURE: September 17, 2020 Hawk is a 54-year-old man who presented to me for further work-up of his CVA. He was referred from Dr. Dang's office where he was being seen for seizures as well as right and left parietal stroke. Patient was started on Keppra on 10 June for focal seizures with secondary generalization and profound confusion. He has not had any seizure episode since then. CT scan of head showed right parieto-occipital stroke with hemorrhagic component. He underwent MRA of head on 05 July 2020 that did not show any flow-limiting stenosis or vascular malformation. T1 hypointensity in right parietal lobe as well as left parasagittal parietal lobe were noted. EEG did not show any ongoing seizure activity. He also had history of vision problems in February 2020 for which she had CT scan and MRI at [place] that were reported to be normal. His symptoms were attributed at that point to migraine. 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 His other medical problems include chronic back pain degenerative disc disease lumbar region, depression and diabetes. Family history of lupus in his mother sister brother as well as niece. EKG 04 August 2020: Sinus rhythm, normal axis and normal EKG. he also has history of left popliteal and peroneal trunk DVT and was previously on Eliquis that was stopped because of MRI findings. Event monitor with no arrhythmia/a. Fib. He is here today for outpatient MIGUEL A CHIEF COMPLAINT/INDICATIONFOR SURGICAL PROCEDURE: He is here for elective MIGUEL A to assess for cardioembolic source of stroke PREOP DIAGNOSIS: CVA PLANNED PROCEDRUE: Operation Date: 09/17/20 07:00 Proposed Procedures p MIGUEL A (Transesophageal Echocardiogram) 54561 I63.89(Not Applicable) - Klarissa Perez MD Medications/Allergies* Home Medications Medication Instructions Recorded Confirmed Type famotidine 20 mg tablet 20 mg PO DAILY PRN 07/07/19 09/17/20 History metformin 500 mg tablet 1,000 mg PO BID@0900,2100 tab 07/07/19 09/17/20 History zolpidem 10 mg tablet 10 mg PO BEDTIME@0900 tab 07/07/19 09/17/20 History atorvastatin 80 mg tablet 80 mg PO DAILY@0900 08/05/19 09/17/20 History insulin detemir U-100 100 unit/mL 12 unit SUBCUT DAILY@1200 PRN 08/05/19 09/17/20 History (3 mL) subcutaneous pen lisinopril 10 mg tablet 10 mg PO BID@0900,2100 tab 08/05/19 09/17/20 History niacin 500 mg tablet 500 mg PO DAILY 08/04/20 09/17/20 History levetiracetam 750 mg tablet 2,250 mg PO DAILY tab 09/14/20 09/17/20 History Allergies/Adverse Reactions Allergy/AdvReac Type Severity Reaction Status Date / Time baclofen AdvReac CRAMPS IN Verified 09/14/20 09:01 CALVES tizanidine AdvReac CRAMPS IN Verified 09/14/20 09:01 LEGS zonisamide [From Zonegran] AdvReac N/ V Verified 09/14/20 09:01 Pertinent History/Comorbid Conditions* Medical History (Updated 08/11/20 @ 18:34 by Klarissa Perez MD) DDD (degenerative disc disease), lumbar Depression Diabetes Dyslipidemia Failed back syndrome, lumbar Foraminal stenosis of lumbar region HTN (hypertension) Long-term current use of opiate analgesic Pain management contract signed Spondylosis without myelopathy or radiculopathy, lumbar region Surgical History (Updated 07/08/19 @ 10:34 by DIANN De Jesus) History of lumbar surgery 2012 Dr. Marinelli - Fusion Hx of tonsillectomy (~09/30/14) DR MYERS IN [place] Family History (Updated 08/04/20 @ 09:58 by Concepcion Romero RN) Lupus (systemic lupus erythematosus) Mother Diabetes Mother Father Hypertension Mother Denies family history of Anesthesia complication Bleeding disorder Social History Smoking and tobacco status: former smoker Second hand smoke exposure: No Alcohol intake: current Alcohol intake frequency: holidays/special occasions only Lives independently: Yes History of recent travel: No Pertinent Exam Findings alert, oriented x 3, clear to auscultation bilaterally, regular rate & rhythm and procedure specific exam findings (ASA 2 and Airway 2) Recommendations Surgery/Procedure today Coding Level of Care Code Acute 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
[2020-09-17 08:00] VITALS: BP 109/69; PULSE 73; RESP 18; O2SAT 96
[2020-09-17 08:15] VITALS: BP 107/72; PULSE 72; RESP 18; O2SAT 98
[2020-09-17 08:31] VITALS: BP 118/74; PULSE 71; RESP 18; O2SAT 100
== END 2020-09-17 08:57 | disposition home or self-care (01) ==
PROVIDERS: PCP Nurse Practitioner Family; Visit Provider Internal Medicine Cardiovascular Disease
PROC: (CPT 93312; principal; 2020-09-17 07:00)
DX: I63.89 Other cerebral infarction (principal); F32.9 Major depressive disorder, single episode, unspecified; E11.9 Type 2 diabetes mellitus without complications; Z79.4 Long term (current) use of insulin; E78.5 Hyperlipidemia, unspecified; I10 Essential (primary) hypertension; Z79.891 Long term (current) use of opiate analgesic; Z87.891 Personal history of nicotine dependence; Z86.718 Personal history of other venous thrombosis and embolism; K21.9 Gastro-esophageal reflux disease without esophagitis; M19.90 Unspecified osteoarthritis, unspecified site
CPT/HCPCS: 36415; 93312; 93320; 93325

== ENCOUNTER → 2020-11-18 09:02 | Outpatient (BNVA) | payer MEDICARE, OTHER, SELFPAY | PROVIDERS: PCP Nurse Practitioner Family; Visit Provider Anesthesiology | DX: G89.29 Other chronic pain (principal); M51.36 Other intervertebral disc degeneration, lumbar region; M47.816 Spondylosis without myelopathy or radiculopathy, lumbar region; M48.061 Spinal stenosis, lumbar region without neurogenic claudication; M54.12 Radiculopathy, cervical region; M47.12 Other spondylosis with myelopathy, cervical region; M99.31 Osseous stenosis of neural canal of cervical region; M96.1 Postlaminectomy syndrome, not elsewhere classified; M54.9 Dorsalgia, unspecified; Z79.891 Long term (current) use of opiate analgesic | CPT/HCPCS: 99214 ==

== ENCOUNTER → 2021-01-10 08:35 | Outpatient (BNVA) | payer MEDICARE, OTHER, SELFPAY | PROVIDERS: PCP Nurse Practitioner Family; Referring Provider Nurse Practitioner Family; Visit Provider Urology | DX: N52.9 Male erectile dysfunction, unspecified (principal); N48.6 Induration penis plastica; N52.1 Erectile dysfunction due to diseases classified elsewhere; I10 Essential (primary) hypertension; E11.9 Type 2 diabetes mellitus without complications | CPT/HCPCS: 81003 ==

== ENCOUNTER → 2021-01-13 14:38 | Outpatient (BNVA) | payer MEDICARE, OTHER, SELFPAY | PROVIDERS: PCP Nurse Practitioner Family; Visit Provider Anesthesiology | DX: M47.816 Spondylosis without myelopathy or radiculopathy, lumbar region (principal); M51.36 Other intervertebral disc degeneration, lumbar region; M48.061 Spinal stenosis, lumbar region without neurogenic claudication; M47.12 Other spondylosis with myelopathy, cervical region; M54.12 Radiculopathy, cervical region; M96.1 Postlaminectomy syndrome, not elsewhere classified; M99.31 Osseous stenosis of neural canal of cervical region; Z79.891 Long term (current) use of opiate analgesic; Z87.891 Personal history of nicotine dependence | CPT/HCPCS: 99214 ==

== ENCOUNTER → 2021-01-17 09:42 | Outpatient (BNVA) | payer MEDICARE, OTHER, SELFPAY | PROVIDERS: PCP Nurse Practitioner Family; Visit Provider Specialist | DX: G40.219 Localization-related (focal) (partial) symptomatic epilepsy and epileptic syndromes with complex partial seizures, intractable, without status epilepticus (principal); M47.816 Spondylosis without myelopathy or radiculopathy, lumbar region; M96.1 Postlaminectomy syndrome, not elsewhere classified; R26.81 Unsteadiness on feet | CPT/HCPCS: 99214 ==

== ENCOUNTER 2021-02-09 08:15 | Outpatient (RCR) | payer MEDICARE, OTHER, SELFPAY | END 2021-02-24 23:59 | disposition home or self-care (01) | LOC: SPT 08:15 | PROVIDERS: PCP Nurse Practitioner Family; Visit Provider Specialist | DX: R26.81 Unsteadiness on feet (principal) | CPT/HCPCS: 97110; 97162 ==

== ENCOUNTER 2021-02-25 06:00 | Outpatient (RCR) | payer MEDICARE, OTHER, SELFPAY | END 2021-03-27 23:59 | disposition home or self-care (01) | LOC: SPT 06:00 | PROVIDERS: PCP Nurse Practitioner Family; Visit Provider Specialist | DX: R26.81 Unsteadiness on feet (principal) | CPT/HCPCS: 97110 ==

== ENCOUNTER → 2021-03-01 13:11 | Outpatient (BNVA) | payer MEDICARE, OTHER, SELFPAY | PROVIDERS: PCP Nurse Practitioner Family; Visit Provider Nurse Practitioner | DX: M51.36 Other intervertebral disc degeneration, lumbar region (principal); M47.816 Spondylosis without myelopathy or radiculopathy, lumbar region; M48.061 Spinal stenosis, lumbar region without neurogenic claudication; M96.1 Postlaminectomy syndrome, not elsewhere classified; M99.31 Osseous stenosis of neural canal of cervical region; M47.12 Other spondylosis with myelopathy, cervical region; M54.12 Radiculopathy, cervical region; M25.511 Pain in right shoulder; M25.512 Pain in left shoulder; Z79.891 Long term (current) use of opiate analgesic | CPT/HCPCS: 99213 ==

== ENCOUNTER 2021-03-28 06:00 | Outpatient (RCR) | payer MEDICARE, OTHER, SELFPAY | END 2021-04-14 23:59 | disposition home or self-care (01) | LOC: SPT 06:00 | PROVIDERS: PCP Nurse Practitioner Family; Visit Provider Specialist | DX: R26.81 Unsteadiness on feet (principal) | CPT/HCPCS: 97110 ==

== ENCOUNTER → 2021-05-18 08:39 | Outpatient (BNVA) | payer MEDICARE, OTHER, SELFPAY | PROVIDERS: PCP Nurse Practitioner Family; Visit Provider Anesthesiology | DX: G89.29 Other chronic pain (principal); M47.816 Spondylosis without myelopathy or radiculopathy, lumbar region; M48.061 Spinal stenosis, lumbar region without neurogenic claudication; M51.36 Other intervertebral disc degeneration, lumbar region; M47.12 Other spondylosis with myelopathy, cervical region; M54.12 Radiculopathy, cervical region; M99.31 Osseous stenosis of neural canal of cervical region; M25.512 Pain in left shoulder; Z79.891 Long term (current) use of opiate analgesic | CPT/HCPCS: 99214 ==

== ENCOUNTER → 2021-07-25 13:17 | Outpatient (BNVA) | payer MEDICARE, OTHER, SELFPAY | PROVIDERS: PCP Nurse Practitioner Family; Visit Provider Specialist | DX: G40.219 Localization-related (focal) (partial) symptomatic epilepsy and epileptic syndromes with complex partial seizures, intractable, without status epilepticus (principal); I69.398 Other sequelae of cerebral infarction | CPT/HCPCS: 99214 ==

== ENCOUNTER → 2022-03-14 11:07 | Outpatient (BNVA) | payer MEDICARE, OTHER, SELFPAY | PROVIDERS: Visit Provider Family Medicine | DX: E78.5 Hyperlipidemia, unspecified (principal); F32.9 Major depressive disorder, single episode, unspecified; E11.9 Type 2 diabetes mellitus without complications; I10 Essential (primary) hypertension; N48.6 Induration penis plastica; N40.0 Benign prostatic hyperplasia without lower urinary tract symptoms; N52.1 Erectile dysfunction due to diseases classified elsewhere; Z79.891 Long term (current) use of opiate analgesic; Z23 Encounter for immunization | CPT/HCPCS: 80053; 80061; 83036; 83721; 84153; 84443; 85025 ==

== ENCOUNTER → 2022-07-25 08:38 | Outpatient (BNVA) | payer MEDICARE, OTHER, SELFPAY | PROVIDERS: PCP Family Medicine; Visit Provider Specialist | DX: R25.1 Tremor, unspecified (principal); G40.219 Localization-related (focal) (partial) symptomatic epilepsy and epileptic syndromes with complex partial seizures, intractable, without status epilepticus; Z96.82 Presence of neurostimulator; Z86.73 Personal history of transient ischemic attack (TIA), and cerebral infarction without residual deficits; Z86.718 Personal history of other venous thrombosis and embolism; E11.9 Type 2 diabetes mellitus without complications; Z79.4 Long term (current) use of insulin; Z79.84 Long term (current) use of oral hypoglycemic drugs; I73.9 Peripheral vascular disease, unspecified | CPT/HCPCS: 99215 ==

== ENCOUNTER 2022-08-18 07:49 | Outpatient (CLI) | payer MEDICARE, OTHER, SELFPAY ==
--- NOTE | 2022-08-18 08:45 | MR_ITS ---
WS: [id number] MRI HEAD WITH CONTRAST TECHNIQUE: Sagittal T1, T2 axial, T2 axial FLAIR, axial susceptibility weighted imaging, axial diffus ion weighted images, and coronal T2 images were obtained. Pre and post-T1 axial and post T1 coronal i mages. ADC and FSPGR images. CLINICAL INFORMATION: G40.219 - Localization-related (focal) (partial) symptoma... COMPARISON: MRI FINDINGS: Previously described area of hemorrhagic infarct in the RIGHT parietal lobe has improved compared to the prior examination with decreased T2 hyperintensity. Residual associated hemosiderin and gliosis. No mass effect. No evidence of restricted diffusion to suggest acute ischemia today. Mild small vesse l changes. Mild parenchymal volume loss. Additional chronic appearing infarcts in the LEFT posterior temporal lobe and parasagittal occipital lobe with associated encephalomalacia and gliosis. Small kaykay unt of associated hemosiderin. These have evolved compared to previous. This was visualized on the pr ior MRA 07/05/20 with laminar necrosis New small focus of enhancement in the LEFT posterior frontal lobe near the vertex with associated hem osiderin. Small amount of T2 hyperintensity in this area. This likely represents a tiny subacute enha ncing infarct. This is new from previous. Additional new chronic lacunar infarct in the RIGHT basal g anglia with hemosiderin. This is new from previous. Additional chronic tiny lacunar infarct RIGHT cau date is unchanged. Normal optic chiasm and pituitary infundibulum. Normal cavernous sinuses and Meckel's cave. Mild symm etric atrophy temporal lobes and hippocampal formations. Normal visualized dural venous sinuses. Normal posterior fossa. Normal vascular flow voids at the skull base. No extra-axial fluid collection s. No evidence of mass or mass effect. Paranasal sinuses and mastoid air cells are well aerated. Norm al posterior nasopharynx. Normal parapharyngeal fat. Mild mucosal thickening in the ethmoid air cells . Small vessel changes in the rodrigo. MR/MR head wo/w con [id number] IMPRESSION: 1. Suspected small enhancing subacute infarct in the LEFT centrum semiovale in the LEFT posterior frontal lobe near the vertex measuring 5 mm. Small amount o f hemosiderin in this area. This is new from previous. 2. No evidence of restricted diffusion to suggest acute ischemia. 3. Chronic lacunar infarcts involving the RIGHT caudate and RIGHT basal gangli a with a small amount of hemosiderin in the RIGHT basal ganglia. Basal ganglia lacunar infarct is new from previous. 4. Evolved chronic infarcts involving the RIGHT parietal lobe and LEFT tempora l and occipital lobes with encephalomalacia and gliosis. Associated hemosiderin in these areas. This has evolved compared to previous. 5. Similar-appearing mild small vessel changes with mild parenchymal volume lo ss. 6. Mild symmetric atrophy temporal lobes and hippocampal formations.
[2022-08-18] MEDS: gadobenate dimeglumine 20 mL vial IV (09:16)
== END 2022-08-18 07:50 | disposition home or self-care (01) ==
LOC: RAD 07:52
PROVIDERS: PCP Family Medicine; Visit Provider Specialist
DX: G40.219 Localization-related (focal) (partial) symptomatic epilepsy and epileptic syndromes with complex partial seizures, intractable, without status epilepticus (principal); G31.9 Degenerative disease of nervous system, unspecified; I63.81 Other cerebral infarction due to occlusion or stenosis of small artery
CPT/HCPCS: 70553; A9577

== ENCOUNTER → 2022-08-28 07:59 | Outpatient (BNVA) | payer MEDICARE, OTHER, SELFPAY | PROVIDERS: PCP Family Medicine; Referring Provider Specialist; Visit Provider Specialist | DX: G40.219 Localization-related (focal) (partial) symptomatic epilepsy and epileptic syndromes with complex partial seizures, intractable, without status epilepticus (principal) | CPT/HCPCS: 95812 ==

== ENCOUNTER → 2022-09-12 14:59 | Outpatient (BNVA) | payer MEDICARE, OTHER, SELFPAY | PROVIDERS: PCP Family Medicine; Visit Provider Family Medicine | DX: E11.65 Type 2 diabetes mellitus with hyperglycemia (principal); Z79.4 Long term (current) use of insulin; Z12.5 Encounter for screening for malignant neoplasm of prostate; E11.9 Type 2 diabetes mellitus without complications; E78.5 Hyperlipidemia, unspecified; I10 Essential (primary) hypertension | CPT/HCPCS: 80053; 83036; 85025; G0103 ==

== ENCOUNTER → 2022-09-19 15:44 | Outpatient (BNVA) | payer MEDICARE, OTHER, SELFPAY | PROVIDERS: PCP Family Medicine; Visit Provider Specialist | DX: G25.0 Essential tremor (principal); Z96.89 Presence of other specified functional implants; Z86.73 Personal history of transient ischemic attack (TIA), and cerebral infarction without residual deficits; Z96.82 Presence of neurostimulator | CPT/HCPCS: 99215 ==

== ENCOUNTER 2022-09-20 09:21 | Outpatient (CLI) | payer MEDICARE, OTHER, SELFPAY ==
[2022-09-20 09:52] LABS: Erythrocyte Sedimentation Rate 12 mm/hr (0-10)
[2022-09-20 10:24] LABS: T3 Free 2.3 PG/ML (2.0-4.4); Thyroid Stimulating Hormone 2.45 uIU/mL (0.27-4.20)
[2022-09-21 09:10] LABS: T4 Total 7.4 mcg/dL (4.9-10.5)
[2022-09-21 12:30] LABS: COMPLEMENT COMPONENT C3C 150 mg/dL (82-185); COMPLEMENT COMPONENT C4C 35 mg/dL (15-53)
[2022-09-21 15:06] LABS: THYROID PEROXIDASE ANTIBODIES <1 IU/mL (<9)
[2022-09-21 15:50] LABS: ANA SCREEN, IFA NEGATIVE (NEGATIVE)
[2022-09-21 16:14] LABS: CENTROMERE B ANTIBODY <1.0 NEG AI (<1.0 NEG); JO-1 ANTIBODY <1.0 NEG AI (<1.0 NEG); RNP ANTIBODY <1.0 NEG AI (<1.0 NEG); SCL-70 ANTIBODY <1.0 NEG AI (<1.0 NEG); SJOGREN'S ANTIBODY (SS-A) <1.0 NEG AI (<1.0 NEG); SM ANTIBODY <1.0 NEG AI (<1.0 NEG); SS-B <1.0 NEG AI (<1.0 NEG)
[2022-09-22 02:21] LABS: Anti-Cardiolipin IgA AB <2.0 APL-U/mL
[2022-09-22 16:10] LABS: COMPLEMENT, TOTAL (CH50) >60 U/mL (31-60)
[2022-09-23 16:20] LABS: DNA AB (DS) CRITHIDIA,IFA NEGATIVE (NEGATIVE)
== END 2022-09-20 09:22 | disposition home or self-care (01) ==
LOC: LAB 09:27
PROVIDERS: PCP Family Medicine; Visit Provider Specialist
DX: G40.219 Localization-related (focal) (partial) symptomatic epilepsy and epileptic syndromes with complex partial seizures, intractable, without status epilepticus (principal); I62.9 Nontraumatic intracranial hemorrhage, unspecified; I63.89 Other cerebral infarction; F06.0 Psychotic disorder with hallucinations due to known physiological condition
CPT/HCPCS: 36415; 84436; 84443; 84481; 85651; 86147; 86160; 86162; 86235; 86255; 86376

== ENCOUNTER 2022-09-26 07:35 | Outpatient (CLI) | payer MEDICARE, OTHER, SELFPAY ==
[2022-10-02 08:29] LABS: Calculated Total (E+NE) 65 mcg/24 h (26-121)
[2022-10-08 01:01] LABS: Metanephrines Total Urine 1700 mL; Urine Metanephrines Total 585 mcg/24 h (224-832)
== END 2022-09-26 07:36 | disposition home or self-care (01) ==
LOC: LAB 07:41
PROVIDERS: PCP Family Medicine; Visit Provider Specialist
DX: G40.219 Localization-related (focal) (partial) symptomatic epilepsy and epileptic syndromes with complex partial seizures, intractable, without status epilepticus (principal); I62.9 Nontraumatic intracranial hemorrhage, unspecified; I63.89 Other cerebral infarction
CPT/HCPCS: 82384; 83835

== ENCOUNTER → 2022-12-19 15:13 | Outpatient (BNVA) | payer MEDICARE, OTHER, SELFPAY | PROVIDERS: PCP Family Medicine; Visit Provider Specialist | DX: R20.0 Anesthesia of skin (principal); Z86.73 Personal history of transient ischemic attack (TIA), and cerebral infarction without residual deficits; Z86.718 Personal history of other venous thrombosis and embolism; I62.9 Nontraumatic intracranial hemorrhage, unspecified | CPT/HCPCS: 99214 ==

== ENCOUNTER → 2023-01-25 14:01 | Outpatient (BNVA) | payer MEDICARE, OTHER, SELFPAY | PROVIDERS: PCP Family Medicine; Visit Provider Specialist | DX: G45.9 Transient cerebral ischemic attack, unspecified (principal); G25.0 Essential tremor; Z96.89 Presence of other specified functional implants; Z86.73 Personal history of transient ischemic attack (TIA), and cerebral infarction without residual deficits | CPT/HCPCS: 99215 ==

== ENCOUNTER 2023-02-01 12:08 | Outpatient (CLI) | payer MEDICARE, OTHER, SELFPAY ==
--- NOTE | 2023-02-01 12:15 | MR_ITS ---
WS: [id number] MRI HEAD WITH CONTRAST TECHNIQUE: Sagittal T1, T2 axial, T2 axial FLAIR, axial susceptibility weighted imaging, axial diffus ion weighted images, and coronal T2 images were obtained. Pre and post-T1 axial and post T1 coronal i mages. ADC and FSPGR images. CLINICAL INFORMATION: G45.9 - Transient cerebral ischemic attack, unspecified COMPARISON: MRI 08/18/2022 FINDINGS: Several patchy new foci of partially restricted diffusion in the RIGHT frontal lobe, RIGHT parietal l obe, and RIGHT parasagittal occipital lobe. Associated enhancement in these areas is new from previou s compatible with subacute ischemia. No significant mass effect or midline shift. Mild edema in the R IGHT parasagittal occipital lobe and parietal occipital junction. No new left-sided infarcts. Chronic infarct LEFT parietal occipital junction with encephalomalacia an d gliosis is stable. Small vessel changes in the rodrigo. Moderate small vessel changes with moderate pa renchymal volume loss. Normal posterior fossa. Normal vascular flow voids at the skull base. No extra-axial fluid collection s. No mass of mass or mass effect. Paranasal sinuses are well aerated. Normal posterior nasopharynx a nd parapharyngeal fat. Mild mucosal thickening in the mastoid air cells. Paranasal sinuses are well a erated. 2 tiny chronic lacunar infarcts RIGHT basal ganglia unchanged. Normal optic chiasm and pituitary infundibulum. Mild symmetric atrophy temporal lobes and hippocampal formations. Normal dural venous sinuses. Small amount of patchy hemosiderin involving the RIGHT bridget etal occipital infarct. No other significant changes compared to previous. IMPRESSION: 1. Several new patchy foci of partially restricted diffusion within the RIGHT centrum semiovale and pineda radiata as well as the RIGHT parietal occipital and parasagittal occipital lobes with associat ed enhancement compatible with subacute ischemia. 2. Small amount of patchy cortical hemosiderin associated with the RIGHT parietal occipital infarct. 3. No significant mass effect or midline shift. 4. No other significant changes compared to previous. 5. Chronic infarcts involving the LEFT parietal-occipital junction with encephalomalacia and gliosis stable. 6. Moderate small vessel changes with moderate parenchymal volume loss. Notified Yue Dang MD at 02/01/2023 1:39 PM.
[2023-02-01] MEDS: gadobenate dimeglumine 20 mL vial IV (12:52)
[2023-02-01 15:07] LABS: Estmated Average Glucose 183
== END 2023-02-01 12:09 | disposition home or self-care (01) ==
PROVIDERS: PCP Family Medicine; Visit Provider Specialist
DX: I63.89 Other cerebral infarction (principal); G45.9 Transient cerebral ischemic attack, unspecified; I67.82 Cerebral ischemia; I67.89 Other cerebrovascular disease; E11.9 Type 2 diabetes mellitus without complications; Z79.891 Long term (current) use of opiate analgesic; Z79.4 Long term (current) use of insulin; Z79.84 Long term (current) use of oral hypoglycemic drugs; G40.219 Localization-related (focal) (partial) symptomatic epilepsy and epileptic syndromes with complex partial seizures, intractable, without status epilepticus
CPT/HCPCS: 62270; 70553; 80503; 82784; 82945; 83036; 83916; 84157; 86592; 87070; 87075; 87205; 89050; 95813; 99215; A9577

== ENCOUNTER 2023-02-02 14:38 | Outpatient (CLI) | payer MEDICARE, OTHER, SELFPAY ==
--- NOTE | 2023-02-02 14:45 | MR_ITS ---
WS: [id number] MRA ANGIOGRAPHY [place] HISTORY: R51.9 - Headache, unspecified COMPARISON: 07/05/2020 TECHNIQUE: 3-D MR angiography is performed of the [place]. All images are reviewed including source images. Distal vertebral and basilar arteries are intact with no significant stenosis or plaque. Posterior ce rebral arteries are normal course and caliber. Posterior communicating arteries are both patent. Mild atherosclerotic plaque within the LEFT distal carotid artery. No high-grade stenosis. No aneurys ms or occlusions of the middle cerebral or anterior cerebral arteries. Scattered areas of increased signal involving the RIGHT occipital lobe and posterior RIGHT frontal lo be. Subacute infarcts were described on a recent MRI from 02/01/2023 in these locations. IMPRESSION: 1. No significant progression of mild atherosclerotic disease in the distal LEFT ICA since 07/05/2020. 2. No aneurysms or occlusions within the [place].
== END 2023-02-02 14:39 | disposition home or self-care (01) ==
PROVIDERS: PCP Family Medicine; Visit Provider Specialist
DX: I63.89 Other cerebral infarction (principal); R51.9 Headache, unspecified; E11.9 Type 2 diabetes mellitus without complications
CPT/HCPCS: 70544

== ENCOUNTER → 2023-02-06 10:53 | Outpatient (BNVA) | payer MEDICARE, OTHER, SELFPAY | PROVIDERS: PCP Family Medicine; Referring Provider Specialist; Visit Provider Internal Medicine Cardiovascular Disease | DX: Z86.73 Personal history of transient ischemic attack (TIA), and cerebral infarction without residual deficits (principal); G25.0 Essential tremor; I10 Essential (primary) hypertension; E11.65 Type 2 diabetes mellitus with hyperglycemia; Z79.4 Long term (current) use of insulin; I63.9 Cerebral infarction, unspecified; E78.5 Hyperlipidemia, unspecified | CPT/HCPCS: 80053; 80061; 85025; 99214 ==

== ENCOUNTER 2023-02-09 07:31 | Outpatient (CLI) | payer MEDICARE, OTHER, SELFPAY ==
[2023-02-09 07:51] VITALS: BP 148/87; PULSE 79; RESP 16; TEMP 36.4; O2SAT 100
[2023-02-09] MEDS: cephALEXin 500 mg Capsule 2000 MG PO (07:52)
[2023-02-09 07:53] VITALS: BMI 28.4
--- NOTE | 2023-02-09 08:31 | ECG_ITS ---
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 Measurements Intervals [place] Rate: 81 P: 232 [place]: 85 QRS: 90 QRSD: 92 T: 52 QT: 345 QTc: 402 Interpretive Statements SINUS RHYTHM ARTIFACT No previous ECG available for comparison Electronically Signed On 02-09-2023 19:17:48 CDT by Kalrissa Perez M.D. [email or web address]
--- NOTE | 2023-02-09 09:01 | W.PM.OPSUD ---
Surgery/Procedure H&P Update DATE OF PROCEDURE: February 09, 2023 DATE H&P PERFORMED: 02/06/23 H&P UPDATE INFORMATION: I have reviewed H&P completed within last 30 days, I have examined patient prior to procedure and No changes to prior documentation PREOP DIAGNOSIS: cryptogenic stroke PRIMARY INDICATION FOR PROCEDURE: History of HTN, DM, dyslipidemia,recurrent TIA PLANNED PROCEDURE: Operation Date: 02/09/23 08:30 Proposed Procedures p Loop Recorder Insertion(Not Applicable) - Brian Araujo MD
[2023-02-09 09:39] VITALS: BP 132/77; PULSE 80; RESP 16; O2SAT 99
--- NOTE | 2023-02-09 11:36 | P.OP_ITS ---
Operative Report Date of procedure: February 09, 2023 Surgeon: Brian Araujo MD Procedure: Date of Procedure: 02/09/2023 Name of the procedure: IMPLANTABLE [employer] DRIVER INSERTION LOCATION: Cardiac Catheterization Laboratory REFERRING PROVIDER: Dr. Mcduffie/Dr. Dang PREOPERATIVE DIAGNOSIS: Cryptogenic stroke, recurrent TIA x3] POSTOPERATIVE DIAGNOSIS: Same. ESTIMATED BLOOD LOSS: None COMPLICATIONS: None. BRIEF HISTORY: Patient presented with recurrent episodes of CVA. He had event monitors x2 which didn't reveal any significant arrhythmias to explain the symptoms. For further evaluation, an implantable monitoring coordinator was recommended PROCEDURE: The procedure was explained to the patient in detail with the risks and benefits. The risk of bleeding, hematoma, vascular injury, infection and other concomitant complications were explained in detail. The patient understood this well and consented to proceed. The patient was brought to the Cardiac Hand Zipper Trimmer. The left side of the chest was cleaned and draped in a sterile fashion. 1% Xylocaine was used as local anesthetic agent. An incision was made in the left fourth intercostal space. Making use of the application device, the implantable monitoring coordinator was inserted, subcutaneously. 5 minutes of manual pressure was applied, at the puncture site. The patient tolerated the procedure very well and there were no complications. No bleeding or hematoma. Steri-Strips were applied over the insertion site followed by a sterile dressing. Patient was sent back to the medical floor in stable condition IMPLANTED DEVICE Medtronicl LINQII Model number: [id number] Serial number: [id number] Make: [employer] The transmitter (my [employer] relay) model number # 97868 Serial number: [id number] Make: Medtronic Parameters: Standard settings were applied( (tachycardia rate of 162 beats per minute , bradycardia rate of 40 beats per minute and a pause of 3 seconds ; symptom recording -4 episodes of 7.5 minutes. Atrial fibrillation detection was turned on- recording threshold of ->6 minutes. Sensitivity was kept at 0.035 mV) The R wave sensing was 0.27 mV
== END 2023-02-09 10:05 | disposition home or self-care (01) ==
PROVIDERS: PCP Family Medicine; Visit Provider Internal Medicine Cardiovascular Disease
PROC: (CPT 33285; principal; 2023-02-09 08:30)
DX: I63.9 Cerebral infarction, unspecified (principal); G45.9 Transient cerebral ischemic attack, unspecified; E11.65 Type 2 diabetes mellitus with hyperglycemia; Z79.4 Long term (current) use of insulin; E78.5 Hyperlipidemia, unspecified; Z79.82 Long term (current) use of aspirin; Z79.84 Long term (current) use of oral hypoglycemic drugs; E11.9 Type 2 diabetes mellitus without complications; I10 Essential (primary) hypertension
CPT/HCPCS: 33285; 93005; C1764; C1769

== ENCOUNTER → 2023-02-22 15:07 | Outpatient (BNVA) | payer MEDICARE, OTHER, SELFPAY | PROVIDERS: PCP Family Medicine; Visit Provider Nurse Practitioner Family | DX: G45.9 Transient cerebral ischemic attack, unspecified (principal); Z95.818 Presence of other cardiac implants and grafts | CPT/HCPCS: 99213 ==

== ENCOUNTER 2023-02-26 11:07 | Outpatient (CLI) | payer MEDICARE, OTHER, SELFPAY ==
--- NOTE | 2023-02-26 11:45 | MR_ITS ---
WS: [id number] MRA CAROTID ARTERIES HISTORY: I63.89 - Other cerebral infarction COMPARISON: None available. TECHNIQUE: MRA is performed with intravenous gadolinium. MIP and source images are reviewed. Right: Common carotid arteries normal caliber. There is very mild atherosclerotic disease at the bifu rcation. No high-grade stenosis. External carotid artery is patent. Left: Normally arises from the aortic arch. No high-grade stenosis. There is mild common carotid thiago ry narrowing just proximal to the bifurcation. No high-grade stenosis. Internal and external carotid arteries are patent. Subclavian Arteries: Normal. Vertebral Arteries: Normal. IMPRESSION: 1. Focal area of narrowing involving the distal LEFT common carotid artery towards the bifurcation. S tenosis estimated at less than 50%. Consider follow-up evaluation by carotid ultrasound to confirm st enosis less than 50%. 2. Minimal atherosclerotic disease at the RIGHT carotid bifurcation with no stenosis.
[2023-02-26] MEDS: gadobenate dimeglumine 20 mL vial IV (12:45)
== END 2023-02-26 11:08 | disposition home or self-care (01) ==
PROVIDERS: PCP Family Medicine; Visit Provider Specialist
DX: E11.9 Type 2 diabetes mellitus without complications (principal); I63.89 Other cerebral infarction
CPT/HCPCS: 70548; A9577

== ENCOUNTER → 2023-03-19 13:51 | Outpatient (BNVA) | payer MEDICARE, OTHER, SELFPAY | PROVIDERS: PCP Family Medicine; Visit Provider Specialist | DX: G40.219 Localization-related (focal) (partial) symptomatic epilepsy and epileptic syndromes with complex partial seizures, intractable, without status epilepticus (principal); I63.89 Other cerebral infarction; E11.65 Type 2 diabetes mellitus with hyperglycemia; Z79.4 Long term (current) use of insulin; I10 Essential (primary) hypertension; G45.9 Transient cerebral ischemic attack, unspecified | CPT/HCPCS: 99214 ==

== ENCOUNTER → 2023-05-07 12:09 | Outpatient (BNVA) | payer MEDICARE, OTHER, SELFPAY | PROVIDERS: PCP Family Medicine; Visit Provider Family Medicine | DX: E78.5 Hyperlipidemia, unspecified (principal); F32.9 Major depressive disorder, single episode, unspecified; G45.9 Transient cerebral ischemic attack, unspecified; I63.89 Other cerebral infarction; E11.9 Type 2 diabetes mellitus without complications; I10 Essential (primary) hypertension; N48.6 Induration penis plastica; G47.00 Insomnia, unspecified; M54.12 Radiculopathy, cervical region | CPT/HCPCS: 80048; 83036 ==

== ENCOUNTER → 2023-09-17 13:15 | Outpatient (BNVA) | payer MEDICARE, OTHER, SELFPAY | PROVIDERS: PCP Family Medicine; Visit Provider Specialist | DX: G45.9 Transient cerebral ischemic attack, unspecified (principal); I63.89 Other cerebral infarction; E11.9 Type 2 diabetes mellitus without complications; Z79.891 Long term (current) use of opiate analgesic; R29.90 Unspecified symptoms and signs involving the nervous system; G40.219 Localization-related (focal) (partial) symptomatic epilepsy and epileptic syndromes with complex partial seizures, intractable, without status epilepticus; E11.65 Type 2 diabetes mellitus with hyperglycemia; Z79.4 Long term (current) use of insulin; F51.01 Primary insomnia; G96.9 Disorder of central nervous system, unspecified; R25.1 Tremor, unspecified | CPT/HCPCS: 99214; 99215 ==

== ENCOUNTER 2023-09-27 13:53 | Outpatient (CLI) | payer MEDICARE, OTHER, SELFPAY ==
--- NOTE | 2023-09-27 14:30 | MR_ITS ---
WS: [id number] MRI HEAD WITH CONTRAST TECHNIQUE: Sagittal T1, T2 axial, T2 axial FLAIR, axial susceptibility weighted imaging, axial diffus ion weighted images, and coronal T2 images were obtained. Pre and post-T1 axial and post T1 coronal i mages. ADC and FSPGR images. CLINICAL INFORMATION: F51.01 - Primary insomnia COMPARISON: MRI 02/01/2023 FINDINGS: No evidence of restricted diffusion to suggest acute ischemia. Ventricular system and basal cisterns are patent. Moderate small vessel changes with moderate parenchymal volume loss. Small vessel changes in the rodrigo. Chronic lacunar infarcts in the RIGHT centrum semiovale and pineda radiata seen on the prior study. Chronic infarct with encephalomalacia and gliosis involving the RIGHT parietal and occip ital lobes as well as the LEFT temporoparietal junction unchanged. A few tiny chronic lacunar infarct s in the LEFT pineda radiata and centrum semiovale unchanged. A few tiny chronic lacunar infarcts in the RIGHT lateral basal ganglia. No new infarcts. Chronic hemosiderin involving the RIGHT parieto-occipital infarct is unchanged. Normal posterior laura a. Normal vascular flow voids at the skull base. No extra-axial fluid collections. Paranasal sinuses and mastoid air cells are well aerated. Normal posterior nasopharynx. Normal optic chiasm and pituita ry infundibulum. Moderate symmetric atrophy temporal lobes and hippocampal formations. No abnormal ga dolinium enhancement. Normal dural venous sinuses. No other suspicious findings. MR/MR head wo/w con [id number] IMPRESSION: 1. No evidence of restricted diffusion to suggest acute ischemia. 2. Multiple chronic infarcts described above. No new infarcts. 3. Moderate small vessel changes with moderate parenchymal volume loss. 4. Small vessel changes in the rodrigo. 5. Chronic hemosiderin in the RIGHT parieto-occipital infarct unchanged. 6. No other new findings.
[2023-09-27] MEDS: gadobenate dimeglumine 20 mL vial IV (15:24)
== END 2023-09-27 13:54 | disposition home or self-care (01) ==
LOC: RAD 13:54
PROVIDERS: PCP Family Medicine; Visit Provider Specialist
DX: F51.01 Primary insomnia (principal); G31.89 Other specified degenerative diseases of nervous system; Z86.73 Personal history of transient ischemic attack (TIA), and cerebral infarction without residual deficits
CPT/HCPCS: 70553; A9577

== ENCOUNTER → 2023-12-17 11:48 | Outpatient (BNVA) | payer MEDICARE, OTHER, SELFPAY | PROVIDERS: PCP Family Medicine; Visit Provider Internal Medicine Cardiovascular Disease | DX: I10 Essential (primary) hypertension (principal); E11.65 Type 2 diabetes mellitus with hyperglycemia; Z79.4 Long term (current) use of insulin; E78.5 Hyperlipidemia, unspecified; Z95.818 Presence of other cardiac implants and grafts | CPT/HCPCS: 99213 ==

== ENCOUNTER → 2024-06-19 10:45 | Outpatient (BNVA) | payer MEDICARE, OTHER, SELFPAY | PROVIDERS: PCP Family Medicine; Visit Provider Nurse Practitioner Family | DX: I10 Essential (primary) hypertension (principal); E78.5 Hyperlipidemia, unspecified; F06.0 Psychotic disorder with hallucinations due to known physiological condition; E11.65 Type 2 diabetes mellitus with hyperglycemia; Z79.4 Long term (current) use of insulin; Z86.73 Personal history of transient ischemic attack (TIA), and cerebral infarction without residual deficits; Z87.891 Personal history of nicotine dependence | CPT/HCPCS: 99213 ==

== ENCOUNTER → 2024-06-25 09:43 | Outpatient (BNVA) | payer MEDICARE, OTHER, SELFPAY | PROVIDERS: PCP Family Medicine; Visit Provider Internal Medicine Cardiovascular Disease | DX: Z45.09 Encounter for adjustment and management of other cardiac device (principal) | CPT/HCPCS: 93298 ==

== ENCOUNTER 2024-06-25 15:18 | Outpatient (CLI) | payer MEDICARE, OTHER, SELFPAY ==
--- NOTE | 2024-06-25 15:30 | USCV_ITS ---
Richard Hawk Age: 58 Gender: M : 1965 Exam Date: 06/25/2024 15:30 Ordering Phys: Antonia Rivers NP Technologist: MANOJ Exam Location: [facility] [place] Indication: hx of multiple strokes Risk Factors: Previous Vascular Surgery: Right Brachial BP: / Left Brachial BP: / Right Left Velocity (cm/s) Spectral Plaque Velocity (cm/s) Spectral Plaque Syst/Diast Broadening Syst/Diast Broadening 101.80/31.90 Prox CCA 124.40/ 39.90 119.60/35.40 Mid CCA 126.30/ 39.20 119.60/34.10 Distal CCA 123.90/ 42.30 119.40/47.40 Prox ICA 144.20/ 40.40 99.60/ 37.50 Mid ICA 97.80 / 31.00 45.20/ 23.00 Distal ICA 63.20 / 24.50 169.50 ECA 134.50 1.00 ICA/CCA 1.20 Antegrade Vertebral Antegrade 32.40/ 6.40 cm/s 33.60/ 7.80 cm/s Tri Subclavian Tri 156.5 124.1 0 0 CONCLUSIONS Right ICA stenosis <50%. Moderate atheromatous plaque right carotid bulb/ICA. Left ICA stenosis 50-69% at the lower end of the range. Moderate atheromatous plaque left carotid bulb/ICA. Scattered plaque in both CCA's Normal antegrade Doppler flow noted in the right vertebral artery. Normal antegrade Doppler flow noted in the left vertebral artery. Rob Tapia MD (Electronically Signed) Final Date: 25 June 2024 16:49 S
== END 2024-06-25 15:19 | disposition home or self-care (01) ==
LOC: RAD 15:19
PROVIDERS: PCP Family Medicine; Visit Provider Nurse Practitioner Family
DX: I63.89 Other cerebral infarction (principal); I65.23 Occlusion and stenosis of bilateral carotid arteries
CPT/HCPCS: 93880

== ENCOUNTER → 2024-06-26 12:00 | Outpatient (BNVA) | payer MEDICARE, OTHER, SELFPAY | PROVIDERS: PCP Family Medicine; Visit Provider Family Medicine | DX: E11.9 Type 2 diabetes mellitus without complications (principal); G47.00 Insomnia, unspecified; N48.6 Induration penis plastica; I10 Essential (primary) hypertension; F32.9 Major depressive disorder, single episode, unspecified; G45.9 Transient cerebral ischemic attack, unspecified; I63.89 Other cerebral infarction; E11.65 Type 2 diabetes mellitus with hyperglycemia; Z79.4 Long term (current) use of insulin; E55.9 Vitamin D deficiency, unspecified; Z12.5 Encounter for screening for malignant neoplasm of prostate; E78.5 Hyperlipidemia, unspecified; R79.89 Other specified abnormal findings of blood chemistry; F06.0 Psychotic disorder with hallucinations due to known physiological condition | CPT/HCPCS: 80053; 80061; 82306; 82607; 83036; 84443; 85025; G0103 ==

== ENCOUNTER → 2024-08-20 10:06 | Outpatient (BNVA) | payer MEDICARE, OTHER, SELFPAY | PROVIDERS: PCP Family Medicine; Visit Provider Internal Medicine Cardiovascular Disease | DX: Z45.09 Encounter for adjustment and management of other cardiac device (principal) | CPT/HCPCS: 93298 ==

== ENCOUNTER → 2024-09-24 11:58 | Outpatient (BNVA) | payer MEDICARE, OTHER, SELFPAY | PROVIDERS: PCP Family Medicine; Visit Provider Internal Medicine Cardiovascular Disease | DX: Z45.09 Encounter for adjustment and management of other cardiac device (principal) | CPT/HCPCS: 93298 ==

== ENCOUNTER → 2024-11-19 10:08 | Outpatient (BNVA) | payer MEDICARE, OTHER, SELFPAY | PROVIDERS: PCP Family Medicine; Visit Provider Internal Medicine | DX: Z45.09 Encounter for adjustment and management of other cardiac device (principal) | CPT/HCPCS: 93298 ==

== ENCOUNTER → 2024-12-18 13:14 | Outpatient (BNVA) | payer MEDICARE, OTHER, SELFPAY | PROVIDERS: PCP Family Medicine; Visit Provider Family Medicine | DX: I10 Essential (primary) hypertension (principal); G45.9 Transient cerebral ischemic attack, unspecified; I63.89 Other cerebral infarction; F32.9 Major depressive disorder, single episode, unspecified; N48.6 Induration penis plastica; M62.838 Other muscle spasm; G47.00 Insomnia, unspecified; E11.65 Type 2 diabetes mellitus with hyperglycemia; Z79.4 Long term (current) use of insulin; E78.2 Mixed hyperlipidemia | CPT/HCPCS: 80053; 80061; 82043; 82607; 82746; 83036; 83721 ==

== ENCOUNTER → 2025-01-20 11:35 | Outpatient (BNVA) | payer MEDICARE, OTHER, SELFPAY | PROVIDERS: PCP Family Medicine; Visit Provider Internal Medicine | DX: Z45.09 Encounter for adjustment and management of other cardiac device (principal) | CPT/HCPCS: 93298 ==

== ENCOUNTER → 2025-03-02 15:22 | Outpatient (BNVA) | payer MEDICARE, OTHER, SELFPAY | PROVIDERS: PCP Family Medicine; Visit Provider Nurse Practitioner Family | DX: M25.511 Pain in right shoulder (principal); M25.512 Pain in left shoulder | CPT/HCPCS: 73030 ==

== ENCOUNTER → 2025-03-18 16:32 | Outpatient (BNVA) | payer MEDICARE, OTHER, SELFPAY | PROVIDERS: Visit Provider Internal Medicine Cardiovascular Disease | DX: Z45.09 Encounter for adjustment and management of other cardiac device (principal) | CPT/HCPCS: 93298 ==

== ENCOUNTER 2025-03-30 07:14 | Outpatient (RCR) | payer MEDICARE, OTHER, SELFPAY | END 2025-04-26 23:59 | disposition home or self-care (01) | LOC: SPT 07:14 | PROVIDERS: Visit Provider Nurse Practitioner Family | DX: M25.512 Pain in left shoulder (principal) | CPT/HCPCS: 97110; 97161; 97530 ==

== ENCOUNTER 2025-04-27 06:30 | Outpatient (RCR) | payer MEDICARE, OTHER, SELFPAY | END 2025-05-06 09:21 | disposition home or self-care (01) | LOC: SPT 06:30 | PROVIDERS: Visit Provider Nurse Practitioner Family | DX: M25.512 Pain in left shoulder (principal) | CPT/HCPCS: 97110; 97530 ==